=== PATIENT | male | born 1965 | race American Indian/Alaskan Native ===

== ENCOUNTER 2023-07-17 12:13 | Emergency (ER) | payer MEDICAID ==
[~2023-07-17] VITALS: Ht 167.6 cm; Wt 121.6 kg
[2023-07-17 14:16] LABS: Basophils # (auto) 0.1 10 ^3/uL (0-0.2); Basophils % (auto) 0.7 % (0.0-2.0); Eosinophils # (auto) 0.2 10 ^3/uL (0-0.8); Eosinophils % (auto) 2.2 % (0.0-7.0); Hematocrit 50.4 % (41.0-53.0); Hemoglobin 17.5 g/dL (13.5-17.5); Lymphocytes # (auto) 1.8 10 ^3/uL (0.4-5.4); Lymphocytes % (auto) 19.7 % (10.0-50.0); Mean Corpuscular Hemoglobin 30.5 pg (28.0-32.0); Mean Corpuscular Hgb Conc. 34.8 g/dL (32.0-36.0); Mean Corpuscular Volume 87.8 fL (80.0-100.0); Monocytes # (auto) 0.5 10 ^3/uL (0-1.3); Monocytes % (auto) 5.1 % (0.0-12.0); Neutrophils # (auto) 6.7 10 ^3/uL (1.6-8.6); Neutrophils % (auto) 72.3 % (37.0-80.0); Nucleated Red Blood Cells % 0.1 %; Red Blood Cells 5.74 10^6/uL (4.5-5.90); Red Cell Distribution Width 13.8 % (11.8-14.3); White Blood Cell 9.2 10^3/uL (4.4-10.8)
[2023-07-17 14:21] LABS: Chloride 101 mmol/L (98-107); Sodium 135 mmol/L (136-145)
[2023-07-17 14:22] LABS: Anion Gap 4 (5-15); Carbon Dioxide 30 mmol/L (20-30)
[2023-07-17 14:23] LABS: Calcium 10.7 mg/dL (8.7-10.4)
[2023-07-17 14:27] LABS: Glucose 105 mg/dL (74-106)
[2023-07-17] MEDS ORDERED: AZIT1POW PO (14:35)
[2023-07-17 14:36] LABS: BUN/Creatinine Ratio 14.3 (10.0-20.0); Potassium 5.3 mmol/L (3.5-5.1)
[2023-07-17 14:37] LABS: Blood Urea Nitrogen 9 mg/dL (9-23)
[2023-07-17 14:56] VITALS: BP 151/88; PULSE 69; RESP 16; TEMP 98.2; O2SAT 96
== END 2023-07-17 14:41 | disposition home or self-care (01) ==
LOC: ER 12:17
DX: J20.9 Acute bronchitis, unspecified (principal); E11.9 Type 2 diabetes mellitus without complications; I10 Essential (primary) hypertension; R42 Dizziness and giddiness; Z90.49 Acquired absence of other specified parts of digestive tract
CPT/HCPCS: 36415; 71045; 80048; 85025